=== PATIENT | male | born 1935 | race African-American/Black ===

== ENCOUNTER 2019-09-06 10:52 | Emergency (ER) | payer MEDICARE, OTHER ==
[~2019-09-06] VITALS: Ht 165.1 cm; Wt 72.0 kg
[~2019-09-06 10:52] MED LIST: ASPI-1393 PO; ATOR10TA69 PO; CARV3.1242 PO; DONE5TAB33 PO; FINA5TAB11 PO; FLUO-124 PO; IRBESARTAN PO; MEMA10TA2 PO; POTA10CA42 PO; QUET25TA PO
[2019-09-06] MEDS: KETOROLAC 30MG/ML VIAL IV STA (22:35)
[2019-09-06] MEDS: SODIUM CHLORIDE 0.9% 1,000 ML IV ONE (22:35)
[2019-09-06] MEDS: MORPHINE SULFATE 4 MG/ML CPJ (NOT FOR IM USE) IV STA (22:35)
[2019-09-06] MEDS: ONDANSETRON HCL 4MG/2ML INJ IV STA (22:35)
[2019-09-06 23:05] LABS: BASOPHILS % 0.3 % (0.0-2.0); EOSINOPHILS % 3.5 % (0.0-5.0); HEMOGLOBIN. 13.1 g/dL (14.0-18.0); LYMPHOCYTES % 26.8 % (20.0-50.0); MEAN CORPUSCULAR HEMOGLOBIN 27.2 pg (28.0-32.0); MEAN PLATELET VOLUME 9.4 fl (7.4-10.4); MONOCYTES % 8.2 % (2.0-8.0); NEUTROPHILS % 61.2 % (40.0-76.0); PLATELET 179 x1000/uL (130-400); RED BLOOD CELL COUNT 4.83 mill/uL (4.7-6.1); RED CELL DISTRIBUTION WIDTH 15.9 % (11.6-14.6)
[2019-09-06 23:10] LABS: CHLORIDE 110 mEq/L (98-107)
[2019-09-06 23:15] LABS: ETHANOL BLOOD < 10 mg/dL
[2019-09-06 23:20] LABS: CLARITY URINE CLEAR (CLEAR); COLOR URINE YELLOW (YELLOW); KETONES URINE NEGATIVE (NEGATIVE); LEUKOCYTE ESTERASE URINE NEGATIVE (NEGATIVE); NITRITE URINE NEGATIVE (NEGATIVE); OCCULT BLOOD URINE NEGATIVE (NEGATIVE); PROTEIN URINE 1+ (NEGATIVE); SPECIFIC GRAVITY URINE 1.025 (1.005-1.030); UROBILINOGEN URINE 0.2 E.U./dL (0.2-1.0)
[2019-09-06 23:27] LABS: *AMPHETAMINES SCREEN URINE NEGATIVE (NEGATIVE); *BARBITURATES SCREEN URINE NEGATIVE (NEGATIVE); *BENZODIAZEPINES SCREEN URINE NEGATIVE (NEGATIVE); *COCAINE SCREEN URINE NEGATIVE (NEGATIVE)
[2019-09-06 23:28] LABS: CANNABINOID URINE SCREEN NEGATIVE (NEGATIVE); METHADONE URINE SCREEN NEGATIVE (NEGATIVE); OPIATES URINE SCREEN NEGATIVE (NEGATIVE); PHENCYCLIDINE URINE SCREEN NEGATIVE (NEGATIVE)
[2019-09-07 00:46] VITALS: BP 121/75
== END 2019-09-07 00:48 | disposition home or self-care (01) ==
LOC: ER 10:52
DX: K57.90 Diverticulosis of intestine, part unspecified, without perforation or abscess without bleeding (principal); Q61.3 Polycystic kidney, unspecified; M54.9 Dorsalgia, unspecified; I10 Essential (primary) hypertension; F03.90 Unspecified dementia, unspecified severity, without behavioral disturbance, psychotic disturbance, mood disturbance, and anxiety; Z98.890 Other specified postprocedural states; Z79.899 Other long term (current) drug therapy
CPT/HCPCS: 36415; 74176; 80053; 80305; 80320; 81003; 83690; 84484; 85025; 87040; 87086; 96374; 96375; 99284; J1885; J2270; J2405; J7030; G0480